=== PATIENT | male | born 1945 | race Caucasian/White ===

== ENCOUNTER → 2020-03-15 | Outpatient (CLI) | payer MEDICARE | LOC: M.WC 08:00 | PROVIDERS: ATTEND Surgery | DX: T24.331A Burn of third degree of right lower leg, initial encounter (principal); T31.0 Burns involving less than 10% of body surface; G30.9 Alzheimer's disease, unspecified; H26.9 Unspecified cataract; I48.0 Paroxysmal atrial fibrillation; I25.2 Old myocardial infarction; F02.80 Dementia in other diseases classified elsewhere, unspecified severity, without behavioral disturbance, psychotic disturbance, mood disturbance, and anxiety; Z87.891 Personal history of nicotine dependence; X17.XXXA Contact with hot engines, machinery and tools, initial encounter; Y93.89 Activity, other specified; Y92.89 Other specified places as the place of occurrence of the external cause; Y99.8 Other external cause status ==

== ENCOUNTER → 2020-03-22 | Outpatient (CLI) | payer MEDICARE | LOC: M.WC 03:30 | PROVIDERS: ATTEND Surgery | DX: T24.231D Burn of second degree of right lower leg, subsequent encounter (principal); T31.0 Burns involving less than 10% of body surface; I48.0 Paroxysmal atrial fibrillation; H26.9 Unspecified cataract; I25.2 Old myocardial infarction; G30.9 Alzheimer's disease, unspecified; F02.80 Dementia in other diseases classified elsewhere, unspecified severity, without behavioral disturbance, psychotic disturbance, mood disturbance, and anxiety; Z87.891 Personal history of nicotine dependence; X08.8XXD Exposure to other specified smoke, fire and flames, subsequent encounter ==

== ENCOUNTER → 2020-03-29 | Outpatient (CLI) | payer MEDICARE | LOC: M.WC 06:00 | PROVIDERS: ATTEND Surgery | DX: T24.231D Burn of second degree of right lower leg, subsequent encounter (principal); T31.0 Burns involving less than 10% of body surface; G30.9 Alzheimer's disease, unspecified; I48.0 Paroxysmal atrial fibrillation; I25.2 Old myocardial infarction; H26.9 Unspecified cataract; F02.80 Dementia in other diseases classified elsewhere, unspecified severity, without behavioral disturbance, psychotic disturbance, mood disturbance, and anxiety; Z87.891 Personal history of nicotine dependence; X08.8XXD Exposure to other specified smoke, fire and flames, subsequent encounter ==